=== PATIENT | female | born 1980 | race Caucasian/White ===

== ENCOUNTER 2023-09-24 18:59 | Emergency (ER) | payer MEDICAID ==
[~2023-09-24] VITALS: Ht 167.6 cm; Wt 70.0 kg
[2023-09-24 19:05] VITALS: TEMP 100.7
[2023-09-24 19:49] LABS: BASOPHILS % (AUTO) 0.3 % (0-1); EOSINOPHILS % (AUTO) 0.1 % (0-6)
[2023-09-24 19:49] LABS: BILIRUBIN,URINE NEGATIVE (Neg); CLARITY,URINE CLEAR (Clear); COLOR,URINE STRAW (Yellow); GLUCOSE, URINE NEGATIVE (Neg); KETONES,URINE NEGATIVE (Neg); LEUKOCYTE ESTERASE ,URINE NEGATIVE (Neg); NITRITES, URINE NEGATIVE (Neg); OCCULT BLOOD,URINE NEGATIVE (Neg); PH,URINE 6.5 (4.8-8.0); PROTEIN,URINE NEGATIVE (Neg); UROBILINOGEN,URINE 0.2 E.U/dL (0.2-1.0)
[2023-09-24 19:51] LABS: HEMATOCRIT 40.8 % (35.0-45.0); HEMOGLOBIN 13.9 g/dl (12.0-16.0); LYMPHOCYTES % (AUTO) 18.2 % (21-51); MEAN CORPUSCULAR HEMOGLOBIN 31.6 PG (27.0-31.0); MEAN PLATELET VOLUME 9.2 FL (7.4-10.4); MONOCYTES # (AUTO) 0.5 X10'3 (0-0.9); MONOCYTES % (AUTO) 8.6 % (2-12); NEUTROPHILS # (AUTO) 3.9 X10'3 (1.8-7.7); NEUTROPHILS % (AUTO) 72.8 % (42-75); PLATELET COUNT 258 X10'3 (140-440); RED BLOOD COUNT 4.39 X10'6 (4.20-5.60); RED CELL DISTRIBUTION WIDTH 13.3 % (11.5-14.5); WHITE BLOOD COUNT 5.4 X10'3 (4.5-11.0)
[2023-09-24 19:54] LABS: UA COLLECTION TYPE CLN CATCH MIDSTREAM
[2023-09-24 20:05] LABS: ALBUMIN 3.9 G/DL (3.4-5.0); ANION GAP 7 (8-16); BLOOD UREA NITROGEN 5 MG/DL (7-18); BUN/CREATININE RATIO 6.3 (10.0-20.0); CALCIUM 8.8 MG/DL (8.5-10.1); CHLORIDE 100 MMOL/L (99-107); GLUCOSE 105 MG/DL (70-104); POTASSIUM 3.5 MMOL/L (3.5-5.1); SODIUM 136 MMOL/L (135-145); TOTAL CARBON DIOXIDE 29.1 MMOL/L (24-32); eCRCL 85 ML/MIN; eGFR 78 ML/MIN
[2023-09-24] MEDS: ipratropium/albuterol 3ml nebule NEB ONE (20:22)
[2023-09-24 20:23] VITALS: PULSE 102; RESP 18
[2023-09-24] MEDS: methylPREDNISolone sod succ 125mg/2ml vial IV ONE (20:29)
[2023-09-24 20:32] VITALS: PULSE 112; RESP 16; O2SAT 97
[2023-09-24] MEDS: CefTRIAXone 2gm/D5W 50ml BAG 50 ML IV SCH (20:35)
[2023-09-24] MEDS ORDERED: AZIT-164 PO (23:34)
[2023-09-24] MEDS: normal saline 1000ML IV soln IVB ONE ×2 (23:35→23:51)
[2023-09-24] MEDS: azithromycin 250mg tablet PO ONE (23:51)
[2023-09-25] MEDS ORDERED: albuterol 2.5 MG/3 ML nebule CONTNEB PRN (00:25)
[2023-09-25 01:00] VITALS: O2SAT 96
[2023-09-25 02:00] VITALS: BP 102/64; PULSE 85; RESP 17
== END 2023-09-25 02:20 | disposition home or self-care (01) ==
LOC: ER 19:00
DX: J18.9 Pneumonia, unspecified organism (principal); J45.909 Unspecified asthma, uncomplicated
CPT/HCPCS: 36415; 71045; 80048; 81003; 83605; 84145; 84484; 85025; 87040; 93005; 94640; 96361; 96365; 96375; 99285; J0696; J2919; J7030; 94760; 96360